=== PATIENT | female | born 1975 | race Caucasian/White ===

== ENCOUNTER 2019-03-18 23:56 | Emergency (ER) | payer BC ==
[2019-03-19] MEDS ORDERED: SODIUM CHLORIDE 0.9% 500 ML INFUS.BAG IV ONE (00:15)
[2019-03-19] MEDS ORDERED: KETOROLAC TROMETHAMINE 15 MG/ML VIAL IVPUSH ONE (00:16)
[2019-03-19 00:17] VITALS: BP 143/88; PULSE 81; TEMP 98.4; BMI 28.1
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
[2019-03-19] MEDS ORDERED: KETOROLAC TROMETHAMINE 15 MG/ML VIAL ONE (00:31)
[2019-03-19 00:59] LABS: BASO % 1.4 % (0-2.0); EOS % 3.3 % (0-4.5); HEMOGLOBIN 14.8 GM/dL (10.7-15.3); LYMPH % 23.8 % (8-40); MCHC 33.6 g/dl (32.0-36.0); MEAN CELL VOLUME 92.2 fl (80-96); MEAN PLT VOLUME 9.2 fl (7.5-11.1); MONO % 7.8 % (3.8-10.2); NEUT % 63.7 % (42.8-82.8); PLATELET COUNT 278 K/MM3 (134-434); RBC 4.77 M/mm3 (3.60-5.2); RDW 12.4 % (11.6-15.6); WHITE BLOOD COUNT 6.6 K/mm3 (4.0-10.0)
[2019-03-19 01:19] LABS: ALBUMIN 3.7 g/dl (3.4-5.0); BILIRUBIN,TOTAL 0.2 mg/dL (0.2-1); BLOOD UREA NITROGEN 24.6 mg/dL (7-18); CALCIUM 9.1 mg/dL (8.5-10.1); CREATININE 0.8 mg/dL (0.55-1.3); TOT PROT 7.5 g/dl (6.4-8.2)
== END 2019-03-19 03:08 | disposition home or self-care (01) ==
LOC: FER 23:56
PROC: 3E0233Z Introduction of Anti-inflammatory into Muscle, Percutaneous Approach (ICD-10-PCS; principal; 2019-03-18)
DX: E86.0 Dehydration (principal); K58.9 Irritable bowel syndrome, unspecified; N80.9 Endometriosis, unspecified
CPT/HCPCS: 36415; 74177-TC; 80053; 81025; 85025; 99282-25; Q9967

== ENCOUNTER 2019-10-06 17:44 | Emergency (ER) | payer BC ==
[2019-10-06 17:59] VITALS: BP 171/96; PULSE 74; TEMP 98.2; BMI 29.1
--- NOTE | 2019-10-06 19:33 | PDOC ---
*Physical Exam - Vital Signs Last Vital Signs Temp Pulse Resp BP Pulse Ox 98.2 F 74 20 171/96 H 100 10/06/19 17:45 10/06/19 17:45 10/06/19 17:45 10/06/19 17:45 10/06/19 17:45 ED Treatment Course - Medications Given in the ED: ED Medications Discontinued Medications Generic Name Dose Route Start Last Admin Trade Name Freq PRN Reason Stop Dose Admin Oxycodone/Acetaminophen 1 combo 10/06/19 18:07 10/06/19 18:10 Percocet 5/325 - PO 10/06/19 18:08 1 combo ONCE ONE Administration Medical Decision Making - Medical Decision Making 10/06/19 19:19 Sign out received from Dr. Dickens at 7pm, pending CT results. CT shows zygomaticomaxillary complex fx. Also fx of lateral orbital wall, orbital floor, inferior orbital rim, and lateral and anterior maxillary sinus nayak. Pt with no evidence of entrapment or visual disturbance on exam. No injury to lacrimal apparatus. No orbital dystopia. Will give ppx antibiotics given involvement of maxillary sinus. Pt instructed to f/u promptly with plastics or ophtho. Return precautions given. Discharge - Discharge Information Problems reviewed: Yes Clinical Impression/Diagnosis: Fracture of zygomaticomaxillary complex, Orbital fracture, Maxillary fracture Disposition: HOME - Follow up/Referral Referrals: Cesar Dyer MD [Staff Physician] - Hernandez John MD [Staff Physician] - - Patient Discharge Instructions Patient Printed Discharge Instructions: DI for Orbital Fracture, DI for Zygomatic Fracture Additional Instructions: You have multiple facial fractures around your eye and cheekbone. If you experience any double vision, blurred vision, severe eye pain, severe headache, nausea, vomiting, or any other concerning symptoms, return to the ER immediately. Otherwise, you should follow up with an parking technician or plastic surgeon within 1 week for further evaluation of your injuries. Take tylenol or motrin as needed for pain. Apply ice intermittently to the area to reduce swelling over the next 48 hours, and sleep with your head elevated. Avoid nose blowing and sniffing. Take the antibiotics as prescribed to prevent infection. - Post Discharge Activity
[2019-10-06] MEDS ORDERED: CEFPODOXIME PROXETIL 200 MG TABLET [NF] PO ONE (20:03)
[2019-10-06] MEDS ORDERED: oxyCODONE HCL 5 MG TABLET PO ONE (20:05)
[2019-10-06] MEDS ORDERED: oxyCODONE HCL 5 MG TABLET ONE (20:06)
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
== END 2019-10-06 20:07 | disposition home or self-care (01) ==
LOC: SUPCPDRO 17:44 → FER 17:44
DX: S02.849A Fracture of lateral orbital wall, unspecified side, initial encounter for closed fracture (principal); S02.401A Maxillary fracture, unspecified side, initial encounter for closed fracture; Y99.9 Unspecified external cause status
CPT/HCPCS: 70450-TC; 70486-TC; 72125-TC; 99284-25

== ENCOUNTER 2022-02-22 05:48 | Inpatient (IN) | payer BC ==
[2022-02-19 09:21] VITALS: BMI 29.1
[2022-02-22] MEDS ORDERED: VANCOMYCIN/WATER FOR INJ (PEG) 1,000 MG/200 ML BAG IVPB ONE (07:03)
[2022-02-22] MEDS ORDERED: THROMBIN (BOVINE) 5,000 UNIT VIAL TP ONE ×3 (07:05→09:31)
[2022-02-22] MEDS ORDERED: GENTAMICIN SO4 80 MG/2 ML VIAL ONE (07:05)
[2022-02-22] MEDS ORDERED: BUPIVACAINE HCL/PF 0.5% (5MG/ML) 10 ML VIAL ONE (07:06)
[2022-02-22] MEDS ORDERED: DEXMEDETOMIDINE HCL 200 MCG/2 ML IVPB ONE (07:19)
[2022-02-22] MEDS ORDERED: ceFAZolin SODIUM 1 GM VIAL ONE (07:24)
[2022-02-22] MEDS ORDERED: ONDANSETRON 4 MG/2 ML VIAL ONE (07:24)
[2022-02-22] MEDS ORDERED: PROPOFOL 40 ML ONE (07:24)
[2022-02-22] MEDS ORDERED: LIDOCAINE HCL/PF 2% SDV 5ML VIAL ONE (07:24)
[2022-02-22] MEDS ORDERED: DEXAMETHASONE SOD PHOSPHATE 4 MG/1 ML VIAL ONE ×2 (07:24→09:24)
[2022-02-22] MEDS ORDERED: VANCOMYCIN 1,000 MG in DEXTROSE 5%-WATER - 250 ML IVPB ONE (07:30)
[2022-02-22] MEDS ORDERED: VANCOMYCIN 1 GM in D5W (PRE-DOCKED) 1,000 MG/250 ML IVPB ONE ×2 (07:31→08:28)
[2022-02-22] MEDS ORDERED: ceFAZolin SODIUM 1 GM VIAL IVPB ONE ×2 (07:31→08:32)
[2022-02-22] MEDS ORDERED: VANCOMYCIN 1,000 MG VIAL (RESTRICTED TO ID ONLY) ONE ×2 (07:48→07:52)
[2022-02-22] MEDS ORDERED: ROCURONIUM BROMIDE 50 MG/5 ML SYRINGE ONE ×2 (07:56→08:55)
[2022-02-22] MEDS ORDERED: SUCCINYLCHOLINE CHLORIDE 200 MG/10 ML SYRINGE ONE (07:56)
[2022-02-22] MEDS ORDERED: FENTANYL CITRATE/PF 50 MCG/ML VIAL ONE ×6 (07:57→11:44)
[2022-02-22] MEDS ORDERED: MIDAZOLAM HCL 2 MG/2 ML SINGLE DOSE VIAL ONE (07:57)
[2022-02-22] MEDS ORDERED: KETOROLAC TROMETHAMINE 30 MG/1 ML VIAL ONE (07:57)
[2022-02-22] MEDS ORDERED: KETAMINE HCL 500 MG/10 ML VIAL ONE (07:58)
[2022-02-22] MEDS ORDERED: HYDROGEN PEROXIDE 473 ML PO ONE ×2 (08:10→09:33)
[2022-02-22] MEDS ORDERED: GENTAMICIN SO4 80 MG/2 ML VIAL IVPB ONE ×2 (08:10→09:33)
[2022-02-22] MEDS ORDERED: TRANEXAMIC ACID 1000 MG/10 ML VIAL ONE (08:33)
[2022-02-22] MEDS ORDERED: NEOSTIGMINE METHYLSULFATE 0.5 MG/ML - 10 ML MDV ONE (10:18)
[2022-02-22] MEDS ORDERED: GLYCOPYRROLATE 0.2 MG/1 ML VIAL ONE ×3 (10:18)
[2022-02-22] MEDS ORDERED: ONDANSETRON 4 MG/2 ML VIAL IVPUSH PRN ×2 (10:35→10:52)
[2022-02-22] MEDS ORDERED: oxyCODONE HCL 5 MG TABLET PO PRN (10:35)
[2022-02-22] MEDS ORDERED: diphenhydrAMINE HCL 25 MG CAPSULE (FP) PO PRN (10:35)
[2022-02-22] MEDS ORDERED: LACTATED RINGERS SOLUTION 1,000 ML/1,000 ML INFUS.BAG IV SCH (10:45)
[2022-02-22] MEDS ORDERED: ACETAMINOPHEN 1000 MG/100 ML BAG IVPB ONE ×2 (10:53→10:56)
[2022-02-22] MEDS ORDERED: LACTATED RINGERS SOLUTION 1,000 ML IV SCH (11:00)
[2022-02-22] MEDS ORDERED: morphine SULFATE 4 MG/ML VIAL ONE (12:34)
[2022-02-22] MEDS ORDERED: morphine SULFATE 4 MG/ML VIAL IVPUSH ONE (12:36)
[2022-02-22] MEDS ORDERED: ONDANSETRON 4 MG/2 ML VIAL IVPUSH ONE (13:00)
[2022-02-22] MEDS: HEPARIN NA (PORCINE) 5,000 UNITS/ML 1ML VIAL SQ SCH ×2 (16:15→21:45)
[2022-02-22] MEDS: LACTATED RINGERS SOLUTION 1,000 ML IV SCH ×2 (16:15→21:48)
[2022-02-22] MEDS: DOCUSATE SODIUM 100 MG CAPSULE (FP) PO SCH ×2 (16:17→21:48)
[2022-02-22] MEDS: morphine SULFATE 4 MG/ML VIAL IVPUSH PRN ×2 (16:43→20:19)
[2022-02-22] MEDS: CEFAZOLIN 1 GM in DEXTROSE 5%-WATER - 50 ML IVPB SCH (17:36)
[2022-02-22 22:04] VITALS: RESP 20
[2022-02-23] MEDS: morphine SULFATE 4 MG/ML VIAL IVPUSH PRN (01:27)
[2022-02-23] MEDS: CEFAZOLIN 1 GM in DEXTROSE 5%-WATER - 50 ML IVPB SCH ×2 (01:45→10:56)
[2022-02-23] MEDS: DOCUSATE SODIUM 100 MG CAPSULE (FP) PO SCH (06:39)
[2022-02-23] MEDS: HEPARIN NA (PORCINE) 5,000 UNITS/ML 1ML VIAL SQ SCH (06:39)
[2022-02-23] MEDS: oxyCODONE HCL 5 MG TABLET PO PRN ×2 (06:40→12:38)
[2022-02-23] MEDS ORDERED: FAMOTIDINE 20 MG TABLET PO PRN ×2 (08:46→10:13)
[2022-02-23] MEDS ORDERED: GABAPENTIN 400 MG CAPSULE PO PRN ×3 (08:46→11:48)
[2022-02-23] MEDS ORDERED: FOLIC ACID 1 MG TABLET (FP) PO SCH (10:00)
[2022-02-23] MEDS ORDERED: DICYCLOMINE HCL 10 MG CAPSULE PO SCH (10:00)
[2022-02-23] MEDS ORDERED: LISINOPRIL 10 MG TABLET PO SCH (10:00)
[2022-02-23] MEDS ORDERED: FERROUS SO4 325 MG TABLET (FP) PO SCH (10:00)
[2022-02-23 10:53] LABS: HEMOGLOBIN 11.5 GM/dL (10.7-15.3); MCHC 32.8 g/dl (32.0-36.0); MEAN CELL VOLUME 91.5 fl (80-96); MEAN PLT VOLUME 9.6 fl (7.5-11.1); PLATELET COUNT 228 10^3/uL (134-434); RBC 3.82 M/mm3 (3.60-5.2); RDW 12.7 % (11.6-15.6); WHITE BLOOD COUNT 12.6 K/mm3 (4.0-10.0)
[2022-02-23 11:09] VITALS: BP 143/86; PULSE 91; TEMP 98.1
[2022-02-23 11:29] LABS: BLOOD UREA NITROGEN 10.3 mg/dL (7-18)
[2022-02-23 11:31] LABS: CALCIUM 8.3 mg/dL (8.5-10.1)
[2022-02-23 11:32] LABS: CREATININE 0.8 mg/dL (0.55-1.3)
[2022-02-23] MEDS ORDERED: CYCLOBENZAPRINE HCL 10 MG TABLET (FP) PO SCH (22:00)
== END 2022-02-23 13:19 | disposition home or self-care (01) | DRG 473 ==
LOC: J7W 05:48 → J2C 06:17 → J8W 15:19
PROVIDERS: ADMIT Neurological Surgery; ATTEND Internal Medicine
PROC: 00NW0ZZ Release Cervical Spinal Cord, Open Approach (ICD-10-PCS; 2022-02-22)
PROC: 0PB30ZZ Excision of Cervical Vertebra, Open Approach (ICD-10-PCS; 2022-02-22)
PROC: 4A1004G Monitoring of Central Nervous Electrical Activity, Intraoperative, Open Approach (ICD-10-PCS; 2022-02-22)
PROC: 0RG20A0 Fusion of 2 or more Cervical Vertebral Joints with Interbody Fusion Device, Anterior Approach, Anterior Column, Open Approach (ICD-10-PCS; principal; 2022-02-22 08:00)
DX: M47.12 Other spondylosis with myelopathy, cervical region (principal); M40.292 Other kyphosis, cervical region; I10 Essential (primary) hypertension
CPT/HCPCS: 36415; 71045-TC-FY; 72125-TC; 76000-TC-FY; 80048; 81025; 85027; 86850; 86900; 86901; 94760; 97116-GP; 97161-GP; J1644

== ENCOUNTER 2024-04-08 21:56 | Emergency (ER) | payer BC ==
[2024-04-08 22:12] VITALS: BP 124/81; PULSE 78; RESP 16; TEMP 97.7; BMI 23.9
[2024-04-08] MEDS: ALBUTEROL SO4 2.5/IPRATROPIUM 0.5 INH SOL 3 ML VIAL.NEB. NEB ONE ×2 (22:20→22:38)
[2024-04-08] MEDS ORDERED: ALBUTEROL SO4 2.5/IPRATROPIUM 0.5 INH SOL 3 ML VIAL.NEB. NEB ONE (22:33)
[2024-04-08] MEDS ORDERED: AZITHROMYCIN 500 MG TABLET ONE (22:38)
[2024-04-08] MEDS: AZITHROMYCIN 250 MG TABLET PO ONE (22:39)
== END 2024-04-08 22:46 | disposition home or self-care (01) ==
LOC: FER 21:56
PROC: 3E0F7GC Introduction of Other Therapeutic Substance into Respiratory Tract, Via Natural or Artificial Opening (ICD-10-PCS; principal; 2024-04-08)
PROC: 3E0F7GC Introduction of Other Therapeutic Substance into Respiratory Tract, Via Natural or Artificial Opening (ICD-10-PCS; 2024-04-08)
DX: J10.1 Influenza due to other identified influenza virus with other respiratory manifestations (principal); R50.9 Fever, unspecified; R05.9 Cough, unspecified; M79.10 Myalgia, unspecified site; R09.89 Other specified symptoms and signs involving the circulatory and respiratory systems; Z20.822 Contact with and (suspected) exposure to COVID-19
CPT/HCPCS: 0241U-QW; 71046-TC-FY; 99284-25